=== PATIENT | male | born 2000 | race Caucasian/White ===

== ENCOUNTER 2021-12-18 22:57 | Emergency (ER) | payer BC ==
[2021-12-18 23:06] VITALS: TEMP 98.2
--- NOTE | 2021-12-18 23:59 | XR ---
EXAMINATION TYPE: XR tibia fibula RT DATE OF EXAM: 12/18/2021 COMPARISON: NONE HISTORY: Laceration TECHNIQUE: 4 view FINDINGS: There is soft tissue defect on the medial aspect of the mid calf related to large laceratio n. I see no fracture nor dislocation. No evidence of a radiopaque foreign body. There is plate with s crews fixing old fracture of the distal fibula. Knee joint and ankle joint appear intact. IMPRESSION: Large medial laceration deformity
[2021-12-19] MEDS ORDERED: LIDOCAINE 1% INJ 10MG/ML (20 ML MDV) SQ ONE (01:12)
[2021-12-19] MEDS ORDERED: HYDROcodone/APAP 5-325MG 1 EACH TAB PO STA (03:10)
[2021-12-19] MEDS ORDERED: BACITRACIN OINT 1 EACH PACKET TOPICAL ONE (03:10)
[2021-12-19] MEDS ORDERED: ACET/COD 300 MG/30 MG STARTER PACK 6 TAB BTL PO STA (03:15)
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
[2021-12-19 03:37] VITALS: BP 155/84; PULSE 92; RESP 16
== END 2021-12-19 03:37 | disposition home or self-care (01) ==
LOC: EC 22:57
DX: S81.811A Laceration without foreign body, right lower leg, initial encounter (principal); F17.290 Nicotine dependence, other tobacco product, uncomplicated; V86.56XA Driver of dirt bike or motor/cross bike injured in nontraffic accident, initial encounter; Y92.410 Unspecified street and highway as the place of occurrence of the external cause
CPT/HCPCS: 73590; 12004; 99284; J2001